=== PATIENT | male | born 1995 | race Caucasian/White ===

== ENCOUNTER 2018-06-19 08:14 | Emergency (ER) | payer MEDICAID ==
[~2018-06-19] VITALS: Ht 160 cm; Wt 71.8 kg
[2018-06-19 08:33] VITALS: BP 131/62; PULSE 68; RESP 18; Ht 160 cm; Wt 71.8 kg
[2018-06-19] MEDS ORDERED: KETOROLAC 60 MG INJ IM STA (09:02)
[2018-06-19] MEDS ORDERED: DICYCLOMINE 20 MG INJ IM ONE (09:30)
[2018-06-19] MEDS ORDERED: DIPH1TAB PO (12:29)
[2018-06-19] MEDS ORDERED: DICY10CA40 PO (12:29)
--- NOTE | 2018-06-19 12:40 | ERD ---
ER Documentation Chief Complaint Chief Complaint abdominal pain w/ diarrhea x2wks HPI History of Present Illness: 23-year-old male with no past medical history coming in today with complaint of suprapubic abdominal pain and diarrhea. Diarrhea is been present for approximately 2 weeks, 3-4 episodes a day. Patient denies nausea, vomiting, fever, chills, fatigue. Patient reports he believes he had influenza approximately 7 days ago when she had cough congestion-like symptoms. Patient denies sick contacts, denies travel, denies recent antibiotic use. Patient is a daily EtOH drinker. At home pharmacological/nonpharmacological treatment for symptoms: Pepto-Bismol Denies social concerns; Denies recent foreign travel ROS All systems reviewed and are negative except as per history of present illness. Medications Home Meds Active Scripts Diphenoxylate HCl/Atropine (Lomotil 2.5-0.025 mg Tablet) 1 Each Tablet, 1 TAB PO QID PRN for DIARRHEA for 3 Days, #12 TAB Prov:JESSICA MUELLER V TECHNICAL ASSISTANCE CONSULTANT 06/19/18 Dicyclomine HCl (Dicyclomine HCl) 10 Mg Capsule, 10 MG PO TID PRN for ABDOMINAL CRAMPING, #20 CAP Prov:JESSICA MUELLER V TECHNICAL ASSISTANCE CONSULTANT 06/19/18 Reported Medications [None] No Conflict Check 11/26/09 Allergies Allergies: Coded Allergies: No Known Allergy (Verified , 11/20/10) PMhx/Soc History of Surgery: No Anesthesia Reaction: No Hx Neurological Disorder: No Hx Respiratory Disorders: No Hx Cardiac Disorders: No Hx Psychiatric Problems: Yes (HX PANIC ATTACK) Hx Miscellaneous Medical Probl: No Hx Alcohol Use: Yes (2 24 OZ BEERS DAILY) Hx Substance Use: No Hx Tobacco Use: Yes Smoking Status: Current every day smoker FmHx Family History: No diabetes, No coronary disease Physical Exam Vitals Vital Signs Date Temp Pulse Resp B/P (MAP) Pulse Ox O2 O2 Flow FiO2 Time Delivery Rate 06/19/18 97.6 68 18 131/62 98 08:33 (85) Physical Exam Const: No acute distress Head: Atraumatic Eyes: Normal Conjunctiva ENT: Normal External Ears, Nose and Mouth. Moist mucous membranes. Neck: Full range of motion. No meningismus. Resp: Clear to auscultation bilaterally Cardio: Regular rate and rhythm, no murmurs Abd: Soft, tenderness to palpation to suprapubic., non distended. Mildly hyperactive bowel sounds Skin: No petechiae or rashes Back: No midline or flank tenderness Ext: No cyanosis, or edema Neur: Awake and alert Psych: Normal Mood and Affect Results 24 hrs Laboratory Tests Test 06/19/18 09:07 Urine Color YELLOW Urine Clarity CLEAR Urine pH 6.0 Urine Specific [place] 1.024 Urine Ketones NEGATIVE mg/dL Urine Nitrite NEGATIVE mg/dL Urine Bilirubin NEGATIVE mg/dL Urine Urobilinogen 1+ mg/dL Urine Leukocyte Esterase NEGATIVE Kody/ul Urine Hemoglobin NEGATIVE mg/dL Urine Glucose NEGATIVE mg/dL Urine Total Protein NEGATIVE mg/dl Current Medications Medications Dose Sig/Aric Start Time Status Last (Trade) Ordered Route PRN Stop Time Admin Dose Reason Admin Dicyclomine 20 mg ONCE ONCE 06/19/18 DC 06/19/18 HCl IM 09:30 09:52 (Bentyl) 06/19/18 09:31 Ketorolac 60 mg ONCE STAT 06/19/18 DC 06/19/18 Tromethamine IM 09:02 09:21 (Toradol) 06/19/18 09:04 Procedures/MDM ED course includes a thorough examination and history. Medications: Bentyl, ketorolac Imaging:-- Labs: Urinalysis, stool culture, ova parasites Low suspicion for life-threatening medical emergency. Low suspicion for acute abdominal emergency requires hospitalization or immediate surgical intervention. Low suspicion for need of antibiotics at this current time, results pending for stool culture. Otherwise healthy patient presenting with constellation of symptoms likely representing acute diarrhea with unknown etiology as characterized by history, physical exam findings, lab findings. Urinalysis negative for infection. Stool culture pending. No respiratory distress, otherwise relatively well appearing and nontoxic. Patient educated on diagnoses, prescriptions, follow-up care, return p recautions. Strict return precautions given for worsening condition; questions answered discharge. Disposition for discharge with followup in 2 days with PCP/clinic. Departure Diagnosis: Primary Impression: Acute diarrhea Condition: Stable Patient Instructions: Diarrhea, Unk Cause (Adult) Report Pendg Referrals: COMM[facility] YOU HAVE RECEIVED A MEDICAL SCREENING EXAM AND THE RESULTS INDICATE THAT YOU DO NOT HAVE A CONDITION THAT REQUIRES URGENT TREATMENT IN THE EMERGENCY DEPARTMENT. FURTHER EVALUATION AND TREATMENT OF YOUR CONDITION CAN WAIT UNTIL YOU ARE SEEN IN YOUR DOCTORS OFFICE WITHIN THE NEXT 1-2 DAYS. IT IS YOUR RESPONSIBILITY TO MAKE AN APPOINTMENT FOR DIXIE-UP CARE. IF YOU HAVE A PRIMARY DOCTOR --you should call your primary doctor and schedule an appointment IF YOU DO NOT HAVE A PRIMARY DOCTOR YOU CAN CALL OUR PHYSICIAN REFERRAL HOTLINE AT IF YOU CAN NOT AFFORD TO SEE A PHYSICIAN YOU CAN CHOSE FROM THE FOLLOWING [facility] [address] [facility] [address] [facility] [address] [facility] [address] [facility] [address] [facility] [address] [facility]. [facility] YOU HAVE RECEIVED A MEDICAL SCREENING EXAM AND THE RESULTS INDICATE THAT YOU DO NOT HAVE A CONDITION THAT REQUIRES URGENT TREATMENT IN THE EMERGENCY DEPARTMENT. FURTHER EVALUATION AND TREATMENT OF YOUR CONDITION CAN WAIT UNTIL YOU ARE SEEN IN YOUR DOCTORS OFFICE WITHIN THE NEXT 1-2 DAYS. IT IS YOUR RESPONSIBILITY TO MAKE AN APPOINTMENT FOR FOLOW-UP CARE. IF YOU HAVE A PRIMARY DOCTOR --you should call your primary doctor and schedule and appointment IF YOU DO NOT HAVE A PRIMARY DOCTOR YOU CAN CALL OUR PHYSICIAN REFERRAL HOTLINE AT . IF YOU CAN NOT AFFORD TO SEE A PHYSICIAN YOU CAN CHOSE FROM THE FOLLOWING [facility] IN[facility]UTIONS: [facility] [address] [place] [address] [facility] [address] [place] [address] [facility] [address] [place] [address] Additional Instructions: Thank you very much for allowing us to participate in your care. Your health and safety is our top priority at [facility]. It is important to read all discharge instructions and education provided in your discharge packet. *We will inform you if the stool culture results show that you need antibiotics.* Call your primary care doctor TOMORROW for an appointment during the next 2-4 days and bring all the information and medications prescribed. Have prescriptions filled and follow precisely the directions on the label. -diphenoxylate/atropine is a medication that will help with stopping diarrhea. Take this medication as prescribed for the next 3 days. -dicyclomine is a medication that will help with abdominal cramping. This is the same medication given to you during ER visit. Take this medication as needed. If the symptoms get worse and your provider is unavailable, return to the Emergency Department immediately. JESSICA MUELLER NP Jun 19, 2018 12:40
== END 2018-06-19 12:40 | disposition home or self-care (01) ==
LOC: FTE 08:14
DX: R19.7 Diarrhea, unspecified (principal); F17.210 Nicotine dependence, cigarettes, uncomplicated
CPT/HCPCS: 81003; 96372; J0500; J1885; Z7502

== ENCOUNTER 2018-07-01 17:38 | Emergency (ER) | payer MEDICAID ==
[~2018-07-01] VITALS: Ht 175.3 cm; Wt 71.5 kg
[~2018-07-01 17:38] MED LIST: DICY10CA40 PO; DIPH1TAB PO
[2018-07-01 17:53] VITALS: Ht 175.3 cm; Wt 71.5 kg
[2018-07-01] MEDS ORDERED: METR500T PO (20:14)
[2018-07-01] MEDS ORDERED: BISM262O23 PO (20:14)
[2018-07-01] MEDS ORDERED: AZIT500T3 PO (20:14)
--- NOTE | 2018-07-01 20:16 | ERD ---
ER Documentation Chief Complaint Chief Complaint Diarrhea X 2.5 wks HPI 23-year-old male presents with diarrhea for last 2-1/2 weeks. He has loose bowel meds times a day. There is no blood or mucus. He has nausea without vomiting. Denies fevers. He describes the pain is intermittent cramping in his lower abdomen. He was seen here approximately 1 week ago and prescribed Bentyl and Imodium. He had improvement in symptoms while taking the medication but symptoms have returned. He denies any foreign travel or suspect food. Was drinking a lot of alcohol prior to onset of symptoms but denies current significant use. ROS All systems reviewed and are negative except as per history of present illness. Medications Home Meds Active Scripts Bismuth Subsalicylate* (Pepto-Bismol*) 262 Mg/15 Ml Oral.susp, 15 ML PO Q3H PRN for DIARRHEA for 5 Days, ML Prov:MARK MORRELL MD 07/01/18 Metronidazole* (Flagyl*) 500 Mg Tablet, 500 MG PO TID for 5 Days, TAB Prov:MARK MORRELL MD 07/01/18 Azithromycin* (Zithromax*) 500 Mg Tablet, 500 MG PO DAILY for 3 Days, TAB Prov:MARK MORRELL MD 07/01/18 Diphenoxylate HCl/Atropine (Lomotil 2.5-0.025 mg Tablet) 1 Each Tablet, 1 TAB PO QID PRN for DIARRHEA for 3 Days, #12 TAB Prov:JESSICA MUELLER NP 06/19/18 Dicyclomine HCl (Dicyclomine HCl) 10 Mg Capsule, 10 MG PO TID PRN for ABDOMINAL CRAMPING, #20 CAP Prov:JESSICA MUELLER V WASHING MACHINE REPAIRER 06/19/18 Reported Medications [None] No Conflict Check 11/26/09 Allergies Allergies: Coded Allergies: No Known Allergy (Verified , 11/20/10) PMhx/Soc Medical and Surgical Hx: pt denies Surgical Hx History of Surgery: No Anesthesia Reaction: No Hx Neurological Disorder: No Hx Respiratory Disorders: No Hx Cardiac Disorders: No Hx Psychiatric Problems: Yes (HX PANIC ATTACK) Hx Miscellaneous Medical Probl: No Hx Alcohol Use: Yes (2 24 OZ BEERS DAILY) Hx Substance Use: No Hx Tobacco Use: Yes Smoking Status: Current some day smoker FmHx Family History: No diabetes, No coronary disease, No other Physical Exam Vitals Vital Signs Date Temp Pulse Resp B/P (MAP) Pulse Ox O2 O2 Flow FiO2 Time Delivery Rate 07/01/18 99.0 64 18 141/64 98 17:53 (89) Physical Exam Const: No acute distress Head: Atraumatic Eyes: Normal Conjunctiva ENT: Normal External Ears, Nose and Mouth. Neck: Full range of motion. No meningismus. Resp: Clear to auscultation bilaterally Cardio: Regular rate and rhythm, no murmurs Abd: Soft, non tender, non distended. Normal bowel sounds Skin: No petechiae or rashes Back: No midline or flank tenderness Ext: No cyanosis, or edema Neur: Awake and alert Psych: Normal Mood and Affect Procedures/MDM Patient presents with intermittent loose bowel movements and crampy abdominal pain for last 2 weeks. He has a soft abdomen. He has no tenderness at McBur iker's point or Jaramillo sign. He has no rebound or symptoms suggestive of acute abdomen or obstruction. Given duration of symptoms we will treat empirically with Zithromax, Flagyl, primary care follow-up and return precaution as well as Pepto-Bismol. The patient was stable with no new complaints during the ER course. Clinically, there is no current evidence to suggest meningitis, sepsis, acute abdomen, pneumonia, stroke, acute coronary syndrome, pulmonary embolism, aortic dissection or any other emergent condition appearing to require further evaluation or hospitalization. Patient counseled regarding my diagnostic impression and care plan. Prior to discharge all questions answered. Pt agrees with treatment plan and understands strict return precautions. Pt is instructed to follow up with primary care provider within 24-48 hours. Precautionary instructions provided including instructions to return to the ER if not improving or for any worsening or changing symptoms or concerns. Disclaimer: Inadvertent spelling and grammatical errors are likely due to EHR/dictation software use and do not reflect on the overall quality of patient care. Also, please note that the electronic time recorded on this note does not necessarily reflect the actual time of the patient encounter. Departure Diagnosis: Primary Impression: Acute diarrhea Condition: Stable Patient Instructions: Diarrhea, Bacterial (4Y-Adult) Referrals: NO PRIMARY,CARE PHYSICIAN (PCP) Additional Instructions: We will treat for infectious diarrhea. Recheck for new or worsening symptoms- fevers, blood, worsening pain, new worsening symptoms. MARK MORRELL MD July 01, 2018 20:16
[2018-07-01 21:04] VITALS: BP 121/69; PULSE 62; RESP 18
== END 2018-07-01 21:06 | disposition home or self-care (01) ==
LOC: FTE 17:38
DX: R19.7 Diarrhea, unspecified (principal); F17.210 Nicotine dependence, cigarettes, uncomplicated
CPT/HCPCS: 99283